=== PATIENT | male | born 1990 | race Hispanic/Latino ===

== ENCOUNTER 2020-08-25 19:37 | Emergency (ER) | payer OTHER ==
[2020-08-25] MEDS ORDERED: OCTYL 2-CYANOACRYLATE 1 EACH TP ONE ×3 (20:23→20:34)
[2020-08-25] MEDS ORDERED: CEPHALEXIN 500 MG CAPSULE ONE (20:23)
[2020-08-25] MEDS ORDERED: TETANUS/DIPHTHERIA TOXOID [ADULT] 0.5 ML VIAL IM ONE (20:24)
[2020-08-25] MEDS ORDERED: ACETAMINOPHEN 500 MG TABLET ONE (20:24)
== END 2020-08-25 21:00 | disposition home or self-care (01) ==
LOC: EDH 19:37
DX: S61.211A Laceration without foreign body of left index finger without damage to nail, initial encounter (principal); X58.XXXA Exposure to other specified factors, initial encounter; Y93.89 Activity, other specified; Y92.096 Garden or yard of other non-institutional residence as the place of occurrence of the external cause; Y99.8 Other external cause status
CPT/HCPCS: 12001; 90471; 90714